=== PATIENT | male | born 1990 | race Caucasian/White ===

== ENCOUNTER 2024-04-27 21:44 | Emergency (ER) | payer SELFPAY ==
[2024-04-27 22:04] VITALS: BP 160/100; PULSE 94; RESP 16; TEMP 98.8; BMI 25.7
[2024-04-27] MEDS ORDERED: CEPHALEXIN MONOHYDRATE 500 MG CAPSULE (UD) ONE (23:21)
[2024-04-27] MEDS: CEPHALEXIN MONOHYDRATE 500 MG CAPSULE (UD) PO ONE (23:32)
[2024-04-27] MEDS ORDERED: ACETAMINOPHEN 325 MG TABLET (FP) ONE (23:35)
[2024-04-27] MEDS: ACETAMINOPHEN 325 MG TABLET (FP) PO ONE (23:41)
[2024-04-28 01:26] LABS: HIV INTERPRETATION NEGATIVE (NEGATIVE)
== END 2024-04-27 23:52 | disposition home or self-care (01) ==
LOC: JER 21:44
DX: L02.211 Cutaneous abscess of abdominal wall (principal)
CPT/HCPCS: 36415; 86803; 87070; 87186; 87205; 87389; 99283-25